=== PATIENT | male | born 1950 | race Caucasian/White ===

== ENCOUNTER 2016-08-21 05:58 | Day surgery (SDC) | payer MEDICARE, OTHER ==
--- NOTE | 2016-08-18 12:56 | RAD ---
EXAM DESCRIPTION: Chest,2 Views CLINICAL HISTORY: Preoperative respiratory assessment COMPARISON: None TECHNIQUE: PA/lateral FINDINGS: There is no cardiac or pulmonary abnormality. The lungs are clear. There is no effusion. IMPRESSION: 1. Normal two-view chest. Electronically signed by: Elan Savage MD 08/18/2016 12:57 PM CDT
[2016-08-21] MEDS ORDERED: ceFAZolin SODIUM 1 GM VIAL ONE (06:25)
[2016-08-21] MEDS ORDERED: LACTATED RINGERS 1,000 ML ONE (06:25)
[2016-08-21] MEDS ORDERED: SODIUM CHL 0.9% 100ML MINI-BAG 100 ML IVPB ONE (06:25)
[2016-08-21] MEDS ORDERED: MIDAZOLAM INJ 5 MG/5 ML VIAL ONE (10:05)
[2016-08-21] MEDS ORDERED: fentaNYL CITRATE INJ 50 MCG/ML AMP ONE (10:06)
[2016-08-21] MEDS ORDERED: SODIUM BICARBONATE VIAL 50 MEQ/50 ML VIAL ONE (10:16)
[2016-08-21] MEDS ORDERED: LIDOCAINE 1% 50 ML VIAL INJ ONE (10:16)
[2016-08-21] MEDS ORDERED: hydrALAZINE HCl 20 MG/ML VIAL ONE (10:48)
--- NOTE | 2016-08-21 11:30 | OP ---
DATE OF PROCEDURE: 08/21/16 PREOPERATIVE DIAGNOSIS: 1. Subcutaneous mass, right neck. POSTOPERATIVE DIAGNOSIS: 1. Subcutaneous mass, right neck. PROCEDURE: 1. Excision of subcutaneous mass, right neck. SURGEON: Donta Diop MD. MAGNAFLUX OPERATOR: None. ANESTHESIA: Local infiltration of 1% lidocaine with bicarb and IV sedation by Anesthesia. INDICATION: The patient is a 66-year-old male who has a mass on his right neck that has grown. It is minimally tender, but mainly the fact that it has grown. He was brought to the Surgical Suite today for excision of same after the risks, benefits and alternatives to the procedure were discussed and accepted. FINDINGS: The lesion was approximately 32 mm in length, confined to the subcutaneous tissues and was fatty in nature. PROCEDURE: After the patient was brought to the Surgical Suite and placed in the supine position with the head of the bed slightly elevated, his right neck was prepped and draped. Surgical time-out was then taken. The incision was planned first with a marking pen, then infiltration of anesthesia. The skin was incised with a knife and dissection was carried down through the skin into the subcutaneous tissue using electrocautery. The lesion was identified, then was excised using blunt dissection and electrocautery. It did come out somewhat piecemeal, but the largest piece was over 3 cm. The wound was explored and no further tissue was identified. The wound was irrigated with local anesthetic. Hemostasis was noted to be adequate. The subcutaneous tissues were then reapproximated with interrupted 4-0 Vicryl simple sutures and the skin edges were approximated with 4-0 Nylon vertical mattress sutures. Sterile dressing was applied and pressure dressing. The patient was awakened and taken to the Recovery Room in stable condition. Estimated blood loss was less then 10 mL. All sponge, needle and instrument counts were correct. #[id number] [facility]
[2016-08-21 11:36] VITALS: O2SAT 95
[2016-08-21 12:02] VITALS: BP 162/86; TEMP 97.1
== END 2016-08-21 11:50 | disposition home or self-care (01) ==
LOC: AMB 05:58
PROVIDERS: ATTEND Surgery
DX: D17.0 Benign lipomatous neoplasm of skin and subcutaneous tissue of head, face and neck (principal); I10 Essential (primary) hypertension; K21.9 Gastro-esophageal reflux disease without esophagitis; Z87.891 Personal history of nicotine dependence; Z79.899 Other long term (current) drug therapy
CPT/HCPCS: 00300; 11424; 71020; 81001; 88304; J0360; J0690; J2250; J3010; J7050; J7120